=== PATIENT | male | born 1985 | race Caucasian/White ===

== ENCOUNTER 2025-03-09 15:04 | Emergency (ER) | payer BC, SELFPAY ==
[2025-03-09 15:12] VITALS: BP 131/80
[2025-03-09 15:29] LABS: % Basophils 0.2 % (0-2); % Eosinophils 1.7 % (0-6); % Immature Granulocytes 0.2 % (0-0.5); % Lymphocytes 34.4 % (20.5-51.1); % Monocytes 6.7 % (1.7-9.3); % Neutrophils 56.8 % (42.2-75.2); Absolute Eosinophils 0.2 10^3/uL (0-0.7); Absolute Lymphocytes 3.8 10^3/uL (1.2-3.4); Absolute Monocytes 0.8 10^3/uL (0.1-0.6); Absolute Neutrophils 6.3 10^3/uL (1.4-6.5); Hematocrit 46.5 % (39.0-52.0); Hemoglobin 16.2 g/dL (13.0-18.0); Mean Corp Hgb Conc. 34.8 g/dL (33.0-37.0); Mean Corpuscular Hgb 30.9 pg (27.0-31.0); Mean Corpuscular Volume 88.7 fL (80.0-94.0); Mean Platelet Volume 9.4 fL (7.4-10.4); Nucleated Red Blood Cells % 0 % (-); Platelet Count 215 10^3/uL (130-400); Red Blood Cell Count 5.24 10^6/uL (4.70-6.10); Red Cell Dist. Width 13.1 % (11.5-14.5); White Blood Cell Count 11.1 10^3/uL (4.8-10.8)
[2025-03-09 15:45] LABS: ALT (SGPT) 22 U/L (0-50); AST (SGOT) 21 U/L (17-59); Albumin 4.5 g/dl (3.5-5.0); Alkaline Phosphatase 74 U/L (38-126); Blood Urea Nitrogen 18 mg/dl (9-20); Calcium 9.7 mg/dl (8.4-10.2); Carbon Dioxide 27 mmol/L (22-30); Chloride 102 mmol/L (98-107); Glucose 94 mg/dl (70-99); Potassium 4.5 mmol/L (3.5-5.1); Sodium 141 mmol/L (135-145); Total Bilirubin 0.8 mg/dl (0.2-1.3); Total Protein 7.9 g/dl (6.3-8.2); eGFR > 60.00
[2025-03-09] MEDS: LET TOPICAL ANESTHETIC GEL 3 ML TOPICAL (17:51)
--- NOTE | 2025-03-09 18:22 | ED.GENMED ---
History of Present Illness
General
Chief Complaint: Skin Problem
Source: patient
Time Seen by Provider: 03/09/25 16:06
History of Present Illness
History of Present Illness:
39-year-old male presenting to the emergency department for evaluation from local urgent care for evaluation of concern for possible scrotal/perineal abscess with patient stating he noticed the symptoms few days ago which is gradually increased in
size and pain. Denies any history of similar. Denies any fevers, chills, rigors. No history of diabetes. Patient denies any urinary symptoms. No concern for STI
Past History
Past History
ED Past Medical History: Psychiatric
ED Past Surgical History: None
Social History
Tobacco: Smoker
Alcohol: Binge drinker
Drug: None
Personal: Single
Living: with roommate
Family History
Family History: Other (non contributory)
Review of Systems
Review of Systems
All Other Systems: ROS reviewed and negative except as documented in HPI and ROS
Phy Exam
Physical Exam
Physical Exam:
GENERAL: Alert , in no apparent distress
EYE: conjunctiva clear
Head: Normocephalic atraumatic
NECK: Supple,
ENT: mmm.
LUNGS: no acute respiratory distress
NEUROLOGICAL: Alert and oriented
SKIN: Warm and dry, there is a moderate-sized scrotal abscess measuring about 2 cm in size, erythematous, fluctuant, hot to the touch and tender
MUSCULOSKELETAL: well perfused.
PSYCH: Normal and appropriate interaction.
Scores
Heart Failure Risk
Heart Failure Risk Score: Not Applicable
Heart Score for Chest Pain Patients
STEMI patient?: Not applicable
Withdrawal Assessment of Alcohol
Withdrawal Assessment Completed?: Not applicable
Course
Orders/Labs/Results
Orders:
Orders
03/09/25 15:18
CMP [Comprehensive Metabolic Panel] Urgent
Complete Blood Count/With Diff Urgent
03/09/25 17:46
Lidocaine/Epinephrine/Tetracai [Let Topical Anesthetic Gel] 3 ml .ROUTE .STK-MED ONE
03/09/25 17:47
Lidocaine/Epinephrine/Tetracai [Let Topical Anesthetic Gel] 3 ml TOPICAL NOW STA
03/09/25 18:49
Doxycycline [Vibramycin] 100 mg PO NOW STA
Abnormal Lab Results
03/09/25
15:18
WBC 11.1 H 10^3/uL
(4.8-10.8)
Absolute Lymphs (auto) 3.8 H 10^3/uL
(1.2-3.4)
Absolute Monos (auto) 0.8 H 10^3/uL
(0.1-0.6)
03/09/25 15:18
03/09/25 15:18
Vital Signs
Initial and Last Documented VS:
Initial Vital Signs
Temp Pulse Resp BP Pulse Ox
98.5 F 96 18 131/80 98
03/09/25 15:12 03/09/25 15:12 03/09/25 15:12 03/09/25 15:12 03/09/25 15:12
Last Documented Vital Signs
Temp Pulse Resp BP Pulse Ox
98.5 F 96 18 131/80 98
03/09/25 15:12 03/09/25 15:12 03/09/25 15:12 03/09/25 15:12 03/09/25 15:12
Procedures
Incision/Drainage/Joint Aspiration
Right Groin:
Anethesia: topical- LET
Preparation: cleaned with Hibiclens
Type of procedure: incise and drain
Nature of site: abscess
Description of abscess: less than 3cm
Loculations broken up: No
How much fluid was obtained?: large amount
Fluid description: purulent and foul smelling
MDM/Problems Addressed
Differential Diagnosis Includes:
Cutaneous abscess, I do not have concern for orchitis, epididymitis, STI or urinary tract infection
MDM/Problems Addressed:
39-year-old male presenting the emergency department for evaluation of suspected scrotal/perineal abscess. Based off of presentation I am most suspicious for a perineal abscess just inferior to the scrotum. Incision and drainage performed as above
without complication. Will initiate patient on oral antibiotics. Patient advised on wound care as well as follow-up recommendations and wound check. Since he does not have a PCP he will return to ED in 2-3 days for re-eval or sooner if he has any
other concerns. Patient aware of return precautions to the ER but otherwise stable for discharge home.
*Pulse Oximetry
Patient hypoxic: no
*Critical Care Note
Total Time (30-74mins, 75-104mins- exclusive of procedures): Not Applicable
ED Attending Note
-
Portions of this chart may have been created with voice recognition software.� Occasional wrong word or��sound alike� substitutions may have occurred due to the inherent limitations of voice recognition software.
Discharge Plan
Departure
Patient Disposition: Home (Routine Discharge)
Date of Disposition: 03/09/25
Time of Disposition: 18:49
Patient with high blood pressure during this ER visit?: No
Discharge Problem:
Scrotal abscess
Instructions: Abscess incision and drainage - ED discharge instructions
Prescriptions:
New
doxycycline hyclate 100 mg tablet
100 mg PO BID 7 Days Qty: 14 0RF
No Action
albuterol sulfate 1 PUFF HFA aerosol inhaler
2 puff inhalation R Q4HPRN PRN (Reason: shortness of breath, wheezing) Qty: 1 0RF
Referrals:
UNKNOWN - PT DOES,NOT KNOW [Family Provider] -
Interventions
Interventions:
*Risk Screen - Suicide Last Done: 03/09/25 15:12
*General Assessment Last Done: 03/09/25 15:12
*Neglect/Abuse Screening Last Done: 03/09/25 15:12
*ED- Fall Risk Assessment Last Done: 03/09/25 15:12
*ED COVID-19 Vaccine History Last Done: 03/09/25 15:12
*Nursing Disposition Last Done: 03/09/25 18:58
ED-Skin Assessment Last Done: 03/09/25 18:58
Discharge Date and Time
Discharge Date/Time: 03/09/25 18:58
Print Language: WOLOF
[2025-03-09] MEDS: VIBRAMYCIN 100 MG PO (18:54)
== END 2025-03-09 18:58 | disposition home or self-care (01) ==
LOC: EMR 15:04
PROVIDERS: EMERGENCY PHYSICIAN Student in an Organized Health Care Education/Training Program
DX: N49.2 Inflammatory disorders of scrotum (principal); F17.200 Nicotine dependence, unspecified, uncomplicated
CPT/HCPCS: 99283; 10060; 80053; 85025

== ENCOUNTER 2025-10-06 20:50 | Emergency (ER) | payer BC, SELFPAY ==
[2025-10-06 20:53] VITALS: BP 186/100
--- NOTE | 2025-10-06 22:18 | ED.GENMED ---
History of Present Illness
General
Chief Complaint: Cold/Flu/URI Symptoms
Source: patient
Time Seen by Provider: 10/06/25 22:00
History of Present Illness
History of Present Illness:
This patient is a 40-year-old male who says that he was recently treated for sinus infection and finished the antibiotics, thought to be Augmentin, on Tuesday. Then, around 11 AM today, he developed what he describes as 'sinus pressure' on the
right side which was getting progressively more intense, extending up to the right forehead area. This is since resolved. However, while having the pain he noted that his heart was racing and when he checked his pulse it was in the 120s. When he
arrived to the emergency department he says that he was starting to feel lightheaded, and was assisted to a chair and then brought to a room. He denies numbness, tingling, focal weakness, double vision, change in vision, chest pain, shortness of
breath, abdominal pain, nausea, vomiting. He no longer has pain. He denies other complaints.
Past History
Past History
ED Past Medical History: Psychiatric
ED Past Surgical History: None
Social History
Tobacco: Smoker
Alcohol: Binge drinker
Drug: None
Personal: Single
Living: with roommate
Family History
Family History: Other (non contributory)
Phy Exam
Physical Exam
Physical Exam:
GENERAL: Alert , in no apparent distress
EYE: pupils equal and reactive, EOMI, no photophobia, no nystagmus
NECK: Supple, no significant adenopathy.
ENT: o/p clr, mmm, poor dentition but no specific percussion tenderness, gingival edema, etc.
CARDIAC: Regular rate and rhythm .
LUNGS: Clear breath sounds bilaterally, no acute respiratory distress, no wheezes/rales/rhonchi
ABDOMEN: Soft, without focal tenderness, no r/g, no cvat
NEUROLOGICAL: Alert and oriented, no focal neuro deficits
SKIN: Warm and dry, skin intact.
MUSCULOSKELETAL: No edema, well perfused.
PSYCH: Normal and appropriate interaction.
Course
Orders/Labs/Results
Orders:
Orders
10/06/25 22:15
Electrocardiogram (*1) Urgent
Reason for Study: Palpitations
CT Head W/o Iv Contrast Urgent
Comment:
Reason For Exam: facial/head pain
EKG- Treatment ONCE
10/06/25 22:30
Complete Blood Count/No Diff Urgent
Comprehensive Metabolic Panel Urgent
Abnormal Lab Results
10/06/25
22:30
WBC 11.5 H 10^3/uL
(4.8-10.8)
MCH 31.5 H pg
(27.0-31.0)
10/06/25 22:30
10/06/25 22:30
Vital Signs
Initial and Last Documented VS:
Initial Vital Signs
Temp Pulse Resp BP Pulse Ox
97.9 F 100 16 186/100 97
10/06/25 20:53 10/06/25 20:53 10/06/25 20:53 10/06/25 20:53 10/06/25 20:53
Last Documented Vital Signs
Temp Pulse Resp BP Pulse Ox
97.9 F 82 20 128/81 99
10/06/25 20:53 10/06/25 22:34 10/06/25 22:34 10/07/25 00:56 10/06/25 23:07
*Pulse Oximetry
SaO2: 97
Oxygen Mode of Delivery: Room air
Patient hypoxic: no
*Critical Care Note
Total Time (30-74mins, 75-104mins- exclusive of procedures): Not Applicable
Update Note
Update Note:
Patient presents to the Emergency Department with __'sinus pressure', dizziness, palpitations
Number and Complexity of Problems Addressed at the Encounter
� Chronic conditions affecting care:
� Acute Exacerbation and/or Progression of Chronic Illness:
� Differential Diagnosis includes: But not limited to sinusitis, electrolyte disorder, arrhythmia, tension headache, dental infection, etc. etc.
Amount and/or Complexity of Data to be Reviewed and Analyzed
� I performed an independent evaluation of and my interpretation is:
EKG: Read by me, normal sinus rhythm, normal rate, normal axis, no acute ischemia
CT: Read by vision head CT NAD
Xrays:
Laboratory Studies: Minimal leukocytosis otherwise unremarkable
Other:
� Review of other/old records reveals:
� Clinical information was obtained by an independent historian:
� Prescriptions/Medications Considered but not given:
� Further testing considered but not performed:
Risk of Complications and/or Morbidity or Mortality of Patient Management
� Social determinants of health affecting care:
� Discussion with other providers (PCP, Hospitalists, Consultants, etc):
� Escalation of care including admission/observation vs risk of discharge considered: Patient is awake alert comfortable nontoxic without complaints at this time. Discussed with him his workup here and importance of follow-up.
ED Attending Note
-
Portions of this chart may have been created with voice recognition software.� Occasional wrong word or��sound alike� substitutions may have occurred due to the inherent limitations of voice recognition software.
Discharge Plan
Departure
Patient Disposition: Home (Routine Discharge)
Date of Disposition: 10/07/25
Time of Disposition: 00:47
Patient with high blood pressure during this ER visit?: Yes
Condition: Good
Discharge Problem:
Headache
Instructions: Headache in adults - ED (DC), BLOOD PRESSURE
Prescriptions:
No Action
albuterol sulfate 1 PUFF HFA aerosol inhaler
2 puff inhalation R Q4HPRN PRN (Reason: shortness of breath, wheezing) Qty: 1 0RF
doxycycline hyclate 100 mg tablet
100 mg PO BID 7 Days Qty: 14 0RF
Referrals:
NONE,* [Family Provider, Internal Medicine]
Activity Restrictions/Additional Instructions:
PLEASE FOLLOW-UP WITH YOUR DOCTOR THIS WEEK. IF YOU DEVELOP FEVER, SWELLING, CHANGE IN VISION, CHANGE IN SPEECH, CHANGE IN BALANCE, INCREASING NEW OR PERSISTENT HEADACHE OR FACIAL PAIN, VISUAL CHANGES, OR OTHER WORRISOME SIGNS, PLEASE RETURN TO THE
ER IMMEDIATELY!
Interventions
Interventions:
*Risk Screen - Suicide Last Done: 10/06/25 20:53
*General Assessment Last Done: 10/06/25 20:53
*Neglect/Abuse Screening Last Done: 10/06/25 20:53
*ED- Fall Risk Assessment Last Done: 10/06/25 20:53
*ED COVID-19 Vaccine History Last Done: 10/06/25 20:53
*ED Influenza Vaccine History Last Done: 10/06/25 20:53
*Nursing Disposition Last Done: 10/07/25 00:56
ED- Pulmonary Assessment Last Done: 10/06/25 23:07
Discharge Date and Time
Discharge Date/Time: 10/07/25 00:56
Print Language: [id number]
[2025-10-06 22:34] VITALS: BP 126/97
[2025-10-06 22:51] LABS: Hematocrit 43.6 % (39.0-52.0); Hemoglobin 15.6 g/dL (13.0-18.0); Mean Corp Hgb Conc. 35.8 g/dL (33.0-37.0); Mean Corpuscular Volume 88.1 fL (80.0-94.0); Platelet Count 217 10^3/uL (130-400); Red Cell Dist. Width 12.3 % (11.5-14.5)
[2025-10-06 23:14] LABS: ALT (SGPT) 26 U/L (0-50); AST (SGOT) 24 U/L (17-59); Albumin 4.4 g/dl (3.5-5.0); Alkaline Phosphatase 70 U/L (38-126); Blood Urea Nitrogen 13 mg/dl (9-20); Calcium 9.1 mg/dl (8.4-10.2); Carbon Dioxide 26 mmol/L (22-30); Chloride 104 mmol/L (98-107); Glucose 95 mg/dl (70-99); Potassium 4.1 mmol/L (3.5-5.1); Sodium 138 mmol/L (135-145); Total Protein 7.2 g/dl (6.3-8.2); eGFR > 60.00
[2025-10-07 00:56] VITALS: BP 128/81
== END 2025-10-07 00:56 | disposition home or self-care (01) ==
LOC: EMR 20:50
PROVIDERS: EMERGENCY PHYSICIAN Emergency Medicine
DX: R51.9 Headache, unspecified (principal); R03.0 Elevated blood-pressure reading, without diagnosis of hypertension; F17.200 Nicotine dependence, unspecified, uncomplicated
CPT/HCPCS: 99284; 70450; 80053; 85027; 93005